=== PATIENT | male | born 1955 | race Caucasian/White ===

== ENCOUNTER → 2016-11-10 | Outpatient (CLI) | payer BC ==
[~2016-11-10] MED LIST: AMOX1TAB12 PO; PRED20TA PO
[2016-11-10 14:19] VITALS: BP 137/87
--- NOTE | 2016-11-10 14:19 | Urgent Care T Sheet Gen (E) ---
Intake General Temperature (Fahrenheit): 97.2 Pulse: 80 Blood Pressure Systolic: 137 Blood Pressure Diastolic: 87 Respirations: 18 SPO2: 97 Description of Symptoms Patient presents with possible sinus infection. States he has had a cold for the past 2 weeks. States the symptoms worsened a few days ago. No fever. States his sinuses are very congested and his teeth hurt. No cough or chest congestion. Been taking OTC cold meds for the entire length of illness without relief. Respiratory Constitutional Symptoms: No Fever, Malaise EENTM: Nose Congestion Respiratory: No symptoms reported Cardiovascular: No symptoms reported Gastrointestinal/Abdominal: No symptoms reported Neurological: Headache All Other Systems Reviewed Remaining Systems: All other systems reviewed with negative findings Physical Exam Physical Exam General Appearance: WD/WN No apparent distress Eyes, Ears, Nose, Throat Ex: TMs normal (air fluid bubbles) Other (red, swollen nasal turbinates with purulent drainage. tender over maxillary sinuses, L worse than R) Neck Exam: SuppleNo Lymphadenopathy Respiratory Exam: Lungs clear Normal breath sounds Cardiovascular Exam: Regular rate, rhythm Departure Urgent Care Impression Impression: Primary Impression: Sinusitis Qualified Code: J01.00 - Acute maxillary sinusitis, unspecified Departure Disposition: HOME OR SELF-CARE Condition: Stable Referrals: SABINA CARIAS MD (PCP) Additional Instructions: I have started the patient on Augmentin and Prednisone for treatment. Rest. Fluids DC cold meds Return as needed Patient understands DC instructions. All questions were answered. Scripts Prednisone 20 Mg [id number] Mg PO DAILY #6 TAB Prov:MOIRA JOHNSON 11/10/16 Amoxicillin/Clavulanate Potassium (Augmentin 875mg/125mg)1 Each Tablet1 Tab PO BID #14 TAB Ref 0 Prov:MOIRA JOHNSON 11/10/16 End of report . MOIRA JOHNSON Nov 10, 2016 14:19
== END ==
LOC: MHUC 13:47
PROVIDERS: ATTEND Physician Assistant
DX: J01.00 Acute maxillary sinusitis, unspecified (principal)
CPT/HCPCS: 99213